=== PATIENT | male | born 1960 | race Two or more races ===

== ENCOUNTER → 2018-05-11 11:29 | Outpatient (CLI) | payer OTHER | END | disposition home or self-care (01) | LOC: LAB 11:29 | DX: R91.8 Other nonspecific abnormal finding of lung field (principal) ==

== ENCOUNTER 2018-05-14 10:00 | Outpatient (CLI) | payer OTHER | END 2018-05-14 10:45 | disposition home or self-care (01) | LOC: RAD 10:00 | DX: R91.1 Solitary pulmonary nodule (principal); M25.512 Pain in left shoulder ==